=== PATIENT | female | born 1990 | race Caucasian/White ===

== ENCOUNTER 2016-03-16 06:32 | Day surgery (SDC) | payer BC, OTHER ==
[2016-03-16] MEDS ORDERED: BUPIVACAINE/EPI 0.5% 10 ML SOL INFIL ONE (06:54)
[2016-03-16] MEDS ORDERED: BUPIVACAINE LIPOSOME 20 ML SUS ONE (06:54)
[2016-03-16] MEDS ORDERED: SUCCINYLCHOLINE CHLORIDE 20 MG/ML SOL IV ONE (06:59)
[2016-03-16] MEDS ORDERED: ROCURONIUM BROMIDE 10 MG/ML SOL IV ONE (06:59)
[2016-03-16] MEDS ORDERED: PROPOFOL 10 MG/ML EMU IV ONE (07:00)
[2016-03-16] MEDS ORDERED: LIDOCAINE HCL 1% MPF SOL ONE (07:00)
[2016-03-16] MEDS ORDERED: FENTANYL CITRATE 50 MCG/ML SOL ONE (07:00)
[2016-03-16 09:10] VITALS: RESP 16; TEMP 96
[2016-03-16 10:17] VITALS: BP 122/79; PULSE 68; O2SAT 100
== END 2016-03-16 10:05 | disposition home or self-care (01) | DRG 395 ==
LOC: SURG 06:32
PROVIDERS: ATTEND Surgery
DX: K60.2 Anal fissure, unspecified (principal); K64.4 Residual hemorrhoidal skin tags
CPT/HCPCS: 84703; 99001; J0330; J3010; J2001; J2704

== ENCOUNTER 2017-06-15 18:08 | Inpatient (IN) | payer OTHER ==
[2017-06-15] MEDS ORDERED: METHYLERGONOVINE MALEATE 0.2 MG/ML SOL IM PRN (18:38)
[2017-06-15] MEDS ORDERED: SODIUM CHLORIDE 0.9% FLUSH 10 ML SOL IV PRN (18:38)
[2017-06-15] MEDS ORDERED: MEPIVACAINE HCL 1% MPF 30 ML/VIAL SOL INFIL PRN (18:38)
[2017-06-15] MEDS ORDERED: FENTANYL 100MCG/2ML SOL IV PRN (18:38)
[2017-06-15] MEDS ORDERED: LACTATED RINGERS 1,000 ML IV PRN (18:38)
[2017-06-15] MEDS ORDERED: OXYTOCIN 10000 MU/ML SOL IM PRN (18:38)
[2017-06-15] MEDS ORDERED: CARBOPROST 250 MCG/ML SOL IM PRN (18:38)
[2017-06-15 19:16] LABS: BASOPHILS % (AUTO) 1 % (0-3); EOSINOPHILS % (AUTO) 1 % (0-9); HEMATOCRIT 39 % (35-47); HEMOGLOBIN 13.4 gm/dl (12.0-15.5); LYMPHOCYTES % (AUTO) 23.3 % (10-50); MEAN CORPUSCULAR HEMOGLOBIN 30.7 pg (27.0-32.0); MEAN CORPUSCULAR HGB CONC 34.7 gm/dl (32.0-36.0); MEAN CORPUSCULAR VOLUME 88 fL (81-99); MONOCYTES % (AUTO) 6.9 % (0-12); NEUTROPHILS % (AUTO) 68.4 % (37-80)
[2017-06-15] MEDS ORDERED: NALBUPHINE HCL 20 MG/ML SOL IV PRN (20:28)
[2017-06-15] MEDS ORDERED: EPHEDRINE SULFATE 50 MG/ML SOL IV PRN (20:28)
[2017-06-15] MEDS ORDERED: DIPHENHYDRAMINE 50 MG/ML SOL IV PRN (20:28)
[2017-06-15] MEDS ORDERED: NALOXONE HYDROCHLORIDE 0.4 MG/ML SOL IV PRN (20:28)
[2017-06-15 20:31] LABS: ABO A; ANTIBODY SCREEN Negative; RH TYPE Positive
[2017-06-15] MEDS: SODIUM CHLORIDE 0.9% FLUSH 10 ML SOL IV SCH (20:51)
[2017-06-15] MEDS: LACTATED RINGERS 1,000 ML IV SCH ×4 (20:52→23:54)
[2017-06-15] MEDS ORDERED: LIDOCAINE HCL 2% MPF SOL ONE (21:07)
[2017-06-15] MEDS ORDERED: ROPIVACAINE HYDROCHLORIDE 5 MG/ML SOL ONE (21:38)
[2017-06-15] MEDS ORDERED: FENTANYL 250 MCG/ 5ML SOL ONE (21:38)
[2017-06-16] MEDS ORDERED: LIDOCAINE HCL 2% MPF SOL ONE (00:05)
[2017-06-16] MEDS ORDERED: BISACODYL 10 MG SUP PR PRN (01:45)
[2017-06-16] MEDS ORDERED: APAP/HYDROCODONE 325/5 TAB PO PRN (01:45)
[2017-06-16] MEDS ORDERED: BENZOCAINE/MENTHOL 1 SPR TOP PRN (01:45)
[2017-06-16] MEDS ORDERED: FLEET ENEMA PR PRN (01:45)
[2017-06-16] MEDS ORDERED: TEMAZEPAM 15MG 15 MG CAP PO PRN (01:45)
[2017-06-16] MEDS ORDERED: METHYLERGONOVINE MALEATE 0.2 MG TAB PO PRN (01:45)
[2017-06-16] MEDS: SODIUM CHLORIDE 0.9% FLUSH 10 ML SOL IV SCH ×2 (01:48→09:53)
[2017-06-16] MEDS ORDERED: METHYLERGONOVINE MALEATE 0.2 MG/ML SOL ONE (02:30)
[2017-06-16] MEDS: IBUPROFEN 600 MG TAB PO PRN ×3 (02:35→18:06)
[2017-06-16] MEDS: WITCH HAZEL 1 EA PAD TOP PRN (03:15)
[2017-06-16] MEDS ORDERED: MISOPROSTOL 100 MCG TAB PR PRN (03:58)
[2017-06-16] MEDS ORDERED: MISOPROSTOL 100 MCG TAB ONE (07:15)
[2017-06-16] MEDS: DOCUSATE SODIUM 100 MG SGL PO SCH ×2 (08:14→22:13)
[2017-06-17] MEDS: IBUPROFEN 600 MG TAB PO PRN ×2 (04:20→13:53)
[2017-06-17] MEDS ORDERED: FOLIC ACID 1 MG TAB PO SCH (07:00)
[2017-06-17] MEDS: WITCH HAZEL 1 EA PAD TOP PRN (08:23)
[2017-06-17] MEDS: DOCUSATE SODIUM 100 MG SGL PO SCH (08:23)
[2017-06-17] MEDS ORDERED: MULTIVITAMIN2 1 EA TAB PO SCH (09:00)
[2017-06-17 13:53] VITALS: BP 118/75; PULSE 76; RESP 20; TEMP 97.9; O2SAT 96
== END 2017-06-17 15:05 | disposition home or self-care (01) | DRG 775 ==
LOC: OBSVTOIN 18:08 → OB 18:08
PROVIDERS: ADMIT Family Medicine; ATTEND Family Medicine
PROC: 10E0XZZ Delivery of Products of Conception, External Approach (ICD-10-PCS; principal; 2017-06-16)
PROC: 0KQM0ZZ Repair Perineum Muscle, Open Approach (ICD-10-PCS; 2017-06-16)
DX: O80 Encounter for full-term uncomplicated delivery (principal); Z37.0 Single live birth; Z3A.40 40 weeks gestation of pregnancy; O70.1 Second degree perineal laceration during delivery
CPT/HCPCS: 36415; 59025; 85018; 85025; 86850; 86900; 86901; J0670; J2210; J2590; J2795; J3010; A9270-GY; J3490